=== PATIENT | female | born 2005 | race Hispanic/Latino ===

== ENCOUNTER 2025-03-06 17:24 | Emergency (ER) | payer SELFPAY ==
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
[2025-03-06 17:44] VITALS: BP 122/60; PULSE 69; RESP 16; TEMP 36.6; O2SAT 100
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
== END 2025-03-06 20:22 | disposition home or self-care (01) ==
PROVIDERS: Emergency Provider Physician Assistant
DX: S09.90XA Unspecified injury of head, initial encounter (principal); S16.1XXA Strain of muscle, fascia and tendon at neck level, initial encounter; V49.40XA Driver injured in collision with unspecified motor vehicles in traffic accident, initial encounter
CPT/HCPCS: 70450; 71046; 71100; 72125; 99284